=== PATIENT | female | born 1965 | race Caucasian/White ===

== ENCOUNTER 2022-08-19 11:06 | Emergency (ER) | payer OTHER ==
[~2022-08-19] VITALS: Ht 180.3 cm; Wt 74.8 kg
[2022-08-19 12:08] LABS: BASOPHILS % (AUTO) 1.2 % (0.0-5.0); EOSINOPHILS % (AUTO) 3.3 % (0.0-8.0); HEMATOCRIT 42.7 % (36-48); LYMPHOCYTES % (AUTO) 10.6 % (21.0-51.0); MEAN CORPUSCULAR HEMOGLOBIN 31.6 pg (27.0-33.0); MEAN CORPUSCULAR HGB CONC 32.1 g/dL (32.0-36.0); MEAN CORPUSCULAR VOLUME 98.4 fL (79-99); NEUTROPHILS % (AUTO) 79.5 % (40.0-77.0); PLATELET COUNT (AUTO) 229 K/uL (130-400); RED BLOOD CELL COUNT(AUTO) 4.34 MIL/uL (4.00-5.50); RED CELL DISTRIBUTION WIDTH 15.6 % (11.0-15.5); WHITE BLOOD COUNT (AUTO) 8.4 K/uL (4.8-10.8)
[2022-08-19 12:12] VITALS: BP 134/85
[2022-08-19 12:18] LABS: POTASSIUM 3.5 mmol/L (3.5-5.1)
[2022-08-19 12:22] LABS: ALBUMIN 4.1 g/dL (3.5-5.0); TOTAL PROTEIN, SERUM 7.5 g/dL (6.0-8.3)
[2022-08-19 12:23] LABS: APPEARANCE,URINE CLEAR (CLEAR); BILIRUBIN,URINE NEGATIVE (NEGATIVE); COLOR,URINE LIGHT-YELLOW (YELLOW); GLUCOSE, URINE (UA) NEGATIVE (NEGATIVE); KETONES,URINE NEGATIVE (NEGATIVE); LEUKOCYTE ESTERASE ,URINE 75 Leu/uL (NEGATIVE); NITRATE,URINE NEGATIVE (NEGATIVE); OCCULT BLOOD,URINE NEGATIVE (NEGATIVE); PH,URINE 7.5 (5.0-8.0); PROTEIN,URINE NEGATIVE (NEGATIVE); UROBILINOGEN,URINE 0.2 mg/dL (0.2-1.0)
[2022-08-19] MEDS ORDERED: ORPHENADRINE CITRATE 30 MG/ML ML IM ONE (12:30)
[2022-08-19 12:33] LABS: RBC,URINE 0-1 /HPF (0-1); SQUAMOUS EPITHELIAL CELL,UR RARE /HPF (0-2)
[2022-08-19 12:55] LABS: INR 4.77 (0.85-1.15); PROTHROMBIN TIME 47.6 SEC (9.6-11.6)
[2022-08-19] MEDS ORDERED: TRAM50TA4 PO ×2 (13:02→13:18)
[2022-08-19] MEDS ORDERED: BACL10TA PO (13:02)
== END 2022-08-19 13:24 | disposition home or self-care (01) ==
LOC: EDH 11:06
DX: M54.6 Pain in thoracic spine (principal); R07.9 Chest pain, unspecified; R79.1 Abnormal coagulation profile; J44.9 Chronic obstructive pulmonary disease, unspecified; Z79.01 Long term (current) use of anticoagulants; Z86.718 Personal history of other venous thrombosis and embolism; Z88.2 Allergy status to sulfonamides; Z88.5 Allergy status to narcotic agent; Z88.1 Allergy status to other antibiotic agents; Z88.8 Allergy status to other drugs, medicaments and biological substances; Z98.890 Other specified postprocedural states
CPT/HCPCS: 99285; 84484; 80053; 85025; 85610; 87088; 81001; 36415; 71045; 96372; 93005; J2360